=== PATIENT | female | born 1985 | race African-American/Black ===

== ENCOUNTER 2020-11-02 16:56 | Emergency (ER) | payer OTHER ==
[~2020-11-02] VITALS: Ht 170.2 cm; Wt 62.6 kg
[2020-11-02 17:11] VITALS: BP 101/62
--- NOTE | 2020-11-02 17:15 | NUR ---
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
[2020-11-02] MEDS ORDERED: POLY119P2 PO (17:27)
[2020-11-02] MEDS ORDERED: HYDR25SU33 RC (17:27)
--- NOTE | 2020-11-02 17:37 | NUR ---
Patient discharged to home in stable condition. Written and verbal after care instructions given. Patient verbalizes understanding of instruction. Pt ambulatory with a steady gait
== END 2020-11-02 17:38 | disposition home or self-care (01) ==
LOC: ER 17:06
DX: K64.4 Residual hemorrhoidal skin tags (principal); K60.2 Anal fissure, unspecified

== ENCOUNTER 2022-08-30 09:13 | Emergency (ER) | payer OTHER ==
[~2022-08-30] VITALS: Ht 180.3 cm; Wt 86.2 kg
[~2022-08-30 09:13] MED LIST: HYDR25SU33 RC; POLY119P2 PO
--- NOTE | 2022-08-30 09:52 | NUR ---
sore throat x 7 days
[2022-08-30] MEDS ORDERED: CETI1TAB9 PO (10:12)
--- NOTE | 2022-08-30 10:17 | NUR ---
Seen by Dr. Lynn, discharge home
--- NOTE | 2022-08-30 10:17 | NUR ---
Patient discharged to home in stable condition. Written and verbal after care instructions given. Patient verbalizes understanding of instruction.
[2022-08-30 10:18] VITALS: BP 128/92
== END 2022-08-30 10:18 | disposition home or self-care (01) ==
LOC: ER 09:16
DX: J06.9 Acute upper respiratory infection, unspecified (principal); Z79.899 Other long term (current) drug therapy